=== PATIENT | female | born 1980 | race Caucasian/White ===

== ENCOUNTER 2018-09-05 14:10 | Inpatient (IN) | payer BC ==
[2018-09-05] VITALS (14 sets, daily range): BP systolic 102–150; BP diastolic 50–75; PULSE 77–97; TEMP 98–98.1
[~2018-09-05] VITALS: Ht 162.6 cm; Wt 110.0 kg
--- NOTE | 2018-09-05 14:15 | NUR ---
Patient to LR2 via wheelchair with spouse, changed into gown, FHR/TOCO monitors placed and explained. Patient states her water broke around 1335 and she began yas and having bloody show. SVE-8/100/-1 and amniotest positive with bloody show Patient updated on plan of care and requesting epidural Dr Le called and notified and okay for epidrual. 1430: IV started in right hand, blood drawn and sent to lab, LR infusing. 1440: Chay [employer] FACILITATOR at bedside and patient sitting up at bedside. FHR difficult to trace due to maternal position. 1445: Single shot given and patient tolerates well. see anesthesia record.
[2018-09-05] MEDS ORDERED: PRENATAL MVI (14:44)
[2018-09-05] MEDS ORDERED: CALCIUM CARBON650 M2 (14:46)
[2018-09-05] MEDS ORDERED: PROFERRIN ES12 MG PO (14:46)
[2018-09-05 14:47] LABS: BASO % 0.3 % (0.0-2.0); EOS % 0.1 % (0-4.0); GRAN # 7.6 (1.4-6.5); GRAN % 75.6 % (42.2-75.2); HEMOGLOBIN 11.9 g/dl (12.5-16.0); LYMPH # 1.5 (1.2-3.4); LYMPH % 14.5 % (20.0-51.0); MEAN CELL VOLUME 91 fl (80.0-100.0); MEAN CORPUSCULAR HEMOGLOBIN 31 pg (27.0-31.0); MEAN CORPUSCULAR HGB CONC 34 g/dl (33.0-37.0); MEAN PLATELET VOLUME 11.7 fl (7.4-10.4); MONO # 0.9 (0.1-0.6); MONO % 9.1 % (1.7-9.3); PLATELET COUNT 234 K/mm3 (130-400); RED BLOOD COUNT 3.85 M/mm3 (4.10-5.30); REDCELL DISTRIBUTION WIDTH-CV 13.2 % (11.5-14.5)
[2018-09-05] MEDS ORDERED: FERROUSGLUC256MG (14:47)
[2018-09-05] MEDS ORDERED: TYLENOL 500MG500 MG PO (14:49)
[2018-09-05] MEDS ORDERED: BENADRYL25 M2 PO (14:49)
--- NOTE | 2018-09-05 15:00 | NUR ---
Assumed care of patient. heart tones down in the seventys, eightys. Repositioned side to side, 028L on. Blood pressure 89/51. 1510 Ephedrine 10 mg given iv as ordered. heart tones up to 150s. Dr. Le called with this information above. No new orders given.
--- NOTE | 2018-09-05 15:45 | NUR ---
1555 Rests in bed, alert. Vag check done, complete.1600 Dr. Le notified of patient complete. Also let him know that heart rate 160s-170s. Also let him know that this nurse would start pushing with patient.
--- NOTE | 2018-09-05 16:00 | NUR ---
1609 Pushes with contractions. Does well with pushing.
--- NOTE | 2018-09-05 16:15 | NUR ---
Continues to push with contractions. Tolerates well.
--- NOTE | 2018-09-05 16:30 | NUR ---
1636 Dr. Le to room, continues to push with contractions. 1651 Spontaneous delivery of baby girl by Dr. Le. 1653 Spontaneous delivery of placenta by Dr. Le. Pitocin 333ccs infusing at 333ccs an hour as ordered and per policy.
--- NOTE | 2018-09-05 17:10 | NUR ---
Rests in bed, alert, baby on chest skin to skin. Denies any needs at this time. Repair work done by Dr. Le.
--- NOTE | 2018-09-05 17:25 | NUR ---
Rests in bed, alert. baby. Denies any needs at this time.
--- NOTE | 2018-09-05 17:55 | NUR ---
Rests in bed, alert. Denies any needs at this time.
[2018-09-06 03:41] VITALS: BP 146/94; PULSE 118; TEMP 98.4
--- NOTE | 2018-09-06 03:42 | NUR ---
PTS BP 146/94 WHILE STANDING AND CARING FOR BABY.
[2018-09-06] MEDS ORDERED: MOTRIN 800800 MG/TAB PO (08:26)
--- NOTE | 2018-09-06 08:54 | NUR ---
Initial visit attempt; Family resting, Wrong Address Clerk left card of congratulations and God's blessings for the of their daughter and information regarding the availability of spiritual care.
[2018-09-06 09:50] VITALS: BP 148/80; PULSE 95; TEMP 98.7
[2018-09-06 16:10] VITALS: BP 151/76; PULSE 85; TEMP 98.3
[2018-09-07 00:01] VITALS: BP 133/78; PULSE 90; TEMP 97.5
[2018-09-07 09:10] VITALS: BP 155/90; PULSE 96; TEMP 97.8
== END 2018-09-07 12:00 | disposition home or self-care (01) | DRG 807 ==
LOC: LDRO 14:10 → OB 14:33 → LDR 14:33 → OB 09-06 03:40 → LDRO 09-17 10:38
PROVIDERS: ADMIT Obstetrics & Gynecology
PROC: 10E0XZZ Delivery of Products of Conception, External Approach (ICD-10-PCS; principal; 2018-09-05)
PROC: 0KQM0ZZ Repair Perineum Muscle, Open Approach (ICD-10-PCS; 2018-09-05)
DX: O70.1 Second degree perineal laceration during delivery (principal); Z37.0 Single live birth; Z3A.38 38 weeks gestation of pregnancy; O69.81X0 Labor and delivery complicated by cord around neck, without compression, not applicable or unspecified; Z28.21 Immunization not carried out because of patient refusal; O99.214 Obesity complicating childbirth; Z88.0 Allergy status to penicillin
CPT/HCPCS: J2590; J7120